=== PATIENT | female | born 1985 | race Caucasian/White ===

== ENCOUNTER 2016-10-08 20:22 | Emergency (ER) | payer SELFPAY ==
[~2016-10-08] VITALS: Ht 170.2 cm; Wt 106.8 kg
[2016-10-08] MEDS ORDERED: AMIT10TA6 PO (20:27)
[2016-10-08] MEDS ORDERED: ACETAMINOPHEN 325 MG TABLET PO ONE (22:15)
[2016-10-08] MEDS ORDERED: ACETAMINOPHEN 500 MG TABLET PO ONE (22:30)
[2016-10-08] MEDS ORDERED: IBUPROFEN 600 MG TABLET PO ONE (22:30)
[2016-10-08 23:02] VITALS: BP 127/65
== END 2016-10-08 23:32 | disposition home or self-care (01) ==
LOC: EMS 20:25
DX: S83.91XA Sprain of unspecified site of right knee, initial encounter (principal); J45.909 Unspecified asthma, uncomplicated; I10 Essential (primary) hypertension; Z88.6 Allergy status to analgesic agent; W18.09XA Striking against other object with subsequent fall, initial encounter; Y93.89 Activity, other specified; Y92.832 Beach as the place of occurrence of the external cause; Y99.8 Other external cause status
CPT/HCPCS: 29530; 81025; 99284